=== PATIENT | female | born 1965 | race Caucasian/White ===

== ENCOUNTER → 2019-03-14 09:36 | Outpatient (CLI) | payer OTHER, SELFPAY ==
--- NOTE | 2019-03-14 09:43 | RAD_ITS ---
PROCEDURE: Fluoroscopic guided right hip arthrogram DATE: March 14, 2019. INDICATION: Female, 53 years old. Chronic right hip pain. PHYSICIAN: Hunter Rdz M.D. ACCESS SITE: Right hip. NEEDLE: 22-gauge spinal needle. FLUOROSCOPY TIME (if supplied): (0:40) minutes/seconds FINDINGS: The risks, benefits, and alternatives to the procedure were explained to the patient. The specific risks of bleeding, infection, and neurovascular injury were detailed and accepted. Witnessed informed consent was obtained. A 22-gauge spinal needle was positioned under radiographic fluoroscopic localization. . Approximately 2 cc of Isovue-300 instilled for localization purposes. 10 cc of dilute Magnevist was injected for MRI examination. The patient tolerated the procedure well without any immediate complications. RAD/Arthrogram Hip w/ MRI IMPRESSION: 1. Successful fluoroscopic guided hip injection for MRI examination. Electronically Signed: Hunter Rdz, at 10:48 EDT , Service support ,
--- NOTE | 2019-03-14 10:04 | MRI_ITS ---
STUDY: MRI ARTHROGRAM RIGHT HIP REASON FOR EXAM: Female, 53 years old. Pain TECHNIQUE: Standardized fat and water weighted pulse sequences were obtained in all 3 orthogonal planes following the intra-articular administration of contrast. COMPARISON: None. FINDINGS: Normal hip joint without articular joint space narrowing. Normal acetabulum. There is tear of the superior acetabular labrum, series 2 image 06/29. Normal femoral head. Normal femoral neck and intratrochanteric region. There is no demonstrated fracture. Normal gluteus minimus, medius and iliopsoas tendons and distal insertions. There is no trochanteric, iliopsoas or iliopectineal bursitis. Normal superior and inferior pubic rami. Normal pubic symphysis. Normal ischial tuberosity. Normal origin of the hamstring tendons. Normal visualized iliac wing, sacroiliac joint, and sacral ala. Normal visualized soft tissue structures of the pelvis. MRI/Lower Ext/Jt Only/W Contrast IMPRESSION: No fracture or avascular necrosis. Tear of the superior acetabular labrum. Electronically Signed: Shay Santana MD at 22:10 EDT , Service support ,
== END ==
PROVIDERS: Family Provider Family Medicine; PCP Family Medicine; Referring Provider Physician Assistant; Visit Provider Physician Assistant
DX: S73.101A Unspecified sprain of right hip, initial encounter (principal); X58.XXXA Exposure to other specified factors, initial encounter; Y93.9 Activity, unspecified; Y92.9 Unspecified place or not applicable; Y99.9 Unspecified external cause status; M25.551 Pain in right hip; G89.29 Other chronic pain
CPT/HCPCS: 27093; 73722; 77002; A9575; Q9967